=== PATIENT | female | born 1970 | race Two or more races ===

== ENCOUNTER 2022-11-11 07:05 | Day surgery (SDC) | payer OTHER ==
[~2022-11-11] VITALS: Ht 152.4 cm; Wt 65.3 kg
[~2022-11-11 07:05] MED LIST: FERROUS SULFATE PO; FOLIC ACID PO; LOTREL 5-10 MG1 CAP PO; SYNTH PO
[2022-11-11] MEDS ORDERED: PERCOCET 5-3251 EACH PO (15:01)
== END 2022-11-11 17:50 | disposition home or self-care (01) ==
LOC: CIR.AMB 07:05
PROVIDERS: ATTEND Surgery
DX: D35.1 Benign neoplasm of parathyroid gland (principal); E21.0 Primary hyperparathyroidism; Z20.822 Contact with and (suspected) exposure to COVID-19; Z88.8 Allergy status to other drugs, medicaments and biological substances